=== PATIENT | male | born 1945 | race Caucasian/White ===

== ENCOUNTER → 2017-12-26 08:27 | Outpatient (CLI) | payer MEDICARE, OTHER ==
[2017-12-31 09:09] LABS: IMMUNOGLOBULIN E 359 IU/mL (0-100)
== END | disposition home or self-care (01) ==
LOC: D.RT 08:27
PROVIDERS: Internal Medicine Pulmonary Disease
DX: J44.9 Chronic obstructive pulmonary disease, unspecified (principal)